=== PATIENT | female | born 1995 | race Caucasian/White ===

== ENCOUNTER 2018-12-08 07:45 | Emergency (ER) | payer BC, MEDICAID ==
[~2018-12-08] VITALS: Wt 54.5 kg
[2018-12-08] MEDS ORDERED: KETOROLAC 60 MG INJ IM STA (09:27)
[2018-12-08] MEDS ORDERED: MICO100S4 VG (09:41)
[2018-12-08] MEDS ORDERED: NITR-58 PO (09:41)
[2018-12-08] MEDS ORDERED: FLUC150T PO (09:41)
[2018-12-08] MEDS ORDERED: NAPR-985 PO (09:41)
--- NOTE | 2018-12-08 09:51 | ERD ---
ER Documentation Chief Complaint Chief Complaint lower abd pain w nausea HPI 22-year-old female presenting with lower abdominal pain for the last 2 months. Patient states she has vaginal discharge. She has an IUD placed and she states she has some pelvic pain to the left lower pelvic region. She has not had intercourse for the last 7 months. States that she has not taken any medications for symptoms. Denies dysuria. No medical problems. Allergy to Bactrim. Surgical history denies. Social history denies. LNMP 2 months ago. History of irregular periods. ROS All systems reviewed and are negative except as per history of present illness. Medications Home Meds Active Scripts Naproxen* (Naprosyn*) 500 Mg Tablet, 500 MG PO BID PRN for PAIN AND/OR INFLAMMATION, #30 TAB Prov:LAURA DE LEON PA-C 12/08/18 Fluconazole* (Diflucan*) 150 Mg Tablet, 150 MG PO ONCE, #1 TAB Prov:LAURA DE LEON PA-C 12/08/18 Miconazole Nitrate (Miconazole 7) 100 Mg Supp.vag, 100 MG VG QHS, #7 SUPP.VAG Prov:LAURA DE LEON PA-C 12/08/18 Nitrofurantoin Monohyd Macrocr* (Macrobid*) 100 Mg Capsr, 100 MG PO BID for 14 Days, CAP Prov:LAURA DE LEON PA-C 12/08/18 Reported Medications [None] No Conflict Check 04/27/10 Allergies Allergies: Coded Allergies: Sulfamethoxazole (Verified Allergy, Mild, RASH, 04/29/09) Trimethoprim (Verified Allergy, Mild, RASH, 04/29/09) PMhx/Soc History of Surgery: No Anesthesia Reaction: No Hx Neurological Disorder: No Hx Respiratory Disorders: No Hx Cardiac Disorders: No Hx Psychiatric Problems: No Hx Miscellaneous Medical Probl: No Hx Alcohol Use: No Hx Substance Use: No Hx Tobacco Use: No Smoking Status: Never smoker FmHx Family History: No diabetes, No coronary disease, No other Physical Exam Vitals Vital Signs Date Temp Pulse Resp B/P (MAP) Pulse Ox O2 O2 Flow FiO2 Time Delivery Rate 12/08/18 97.8 88 20 114/66 99 07:53 (82) Physical Exam GENERAL: The patient is well-appearing, well-nourished, in no acute distress HEENT: Atraumatic. Conjunctivae are pink. Pupils equal, round, and reactive to light. There is no scleral icterus. Tympanic membranes clear bilaterally. Oropharynx clear. CHEST: Clear to auscultation bilaterally. There are no rales, wheezes or rhonchi. HEART: Regular rate and rhythm. No murmurs, clicks, rubs or gallops. ABDOMEN:Soft, nontender and nondistended. Good bowel sounds. No rebound or guarding. No gross peritonitis. No gross organomegaly or masses. GENITAL: Not as to the like discharge noted within the vaginal region. No PID. Result Diagram: 12/08/18 0818 12/08/18 0818 Results 24 hrs Laboratory Tests Test 12/08/18 08:18 12/08/18 08:21 White Blood Count 6.1 10^3/ul Red Blood Count 4.57 10^6/ul Hemoglobin 12.1 g/dl Hematocrit 39.0 % Mean Corpuscular Volume 85.3 fl Mean Corpuscular Hemoglobin 26.5 pg Mean Corpuscular Hemoglobin Concent 31.0 g/dl Red Cell Distribution Width 16.8 % Platelet Count 178 10^3/UL Mean Platelet Volume 12.0 fl Immature Granulocytes % 0.200 % Neutrophils % 47.7 % Lymphocytes % 41.7 % Monocytes % 7.6 % Eosinophils % 2.3 % Basophils % 0.5 % Nucleated Red Blood Cells % 0.0 /100WBC Immature Granulocytes # 0.010 10^3/ul Neutrophils # 2.9 10^3/ul Lymphocytes # 2.5 10^3/ul Monocytes # 0.5 10^3/ul Eosinophils # 0.1 10^3/ul Basophils # 0.0 10^3/ul Nucleated Red Blood Cells # 0.0 10^3/ul Urine Color YELLOW Urine Clarity CLOUDY Urine pH 5.0 Urine Specific [place] 1.030 Urine Ketones NEGATIVE mg/dL Urine Nitrite NEGATIVE mg/dL Urine Bilirubin NEGATIVE mg/dL Urine Urobilinogen NEGATIVE mg/dL Urine Leukocyte Esterase 2+ Kina/ul Urine Microscopic RBC 14 /HPF Urine Microscopic WBC 16 /HPF Urine Squamous Epithelial Cells FEW /HPF Urine Calcium Oxalate Crystals MANY /HPF Urine Amorphous Crystals FEW /HPF Urine Bacteria FEW /HPF Urine Mucus MODERATE /HPF Urine Hemoglobin NEGATIVE mg/dL Urine Glucose NEGATIVE mg/dL Urine Total Protein NEGATIVE mg/dl Sodium Level 142 mmol/L Potassium Level 3.7 mmol/L Chloride Level 107 mmol/L Carbon Dioxide Level 25 mmol/L Anion Gap 10 Blood Urea Nitrogen 14 mg/dl Creatinine 0.76 mg/dl Est Glomerular Filtrat Rate mL/min > 60 mL/min Glucose Level 53 mg/dl Calcium Level 9.6 mg/dl Total Bilirubin 0.4 mg/dl Direct Bilirubin 0.00 mg/dl Indirect Bilirubin 0.4 mg/dl Aspartate Amino Transf (AST/SGOT) 24 IU/L Alanine Aminotransferase (ALT/SGPT) 19 IU/L Alkaline Phosphatase 50 IU/L Total Protein 8.0 g/dl Albumin 4.4 g/dl Globulin 3.60 g/dl Albumin/Globulin Ratio 1.22 Lipase 80 U/L POC Beta HCG, Qualitative NEGATIVE Current Medications Medications Dose Sig/Faisal Start Time Status Last (Trade) Ordered Route PRN Stop Time Admin Dose Reason Admin Ketorolac 60 mg ONCE STAT 12/08/18 DC 12/08/18 Tromethamine IM 09:27 09:40 (Toradol) 12/08/18 09:28 500 mg ONCE ONCE 12/08/18 DC Ciprofloxacin PO 10:00 (Cipro) 12/08/18 10:00 Procedures/MDM DIAGNOSTIC IMAGING REPORT Patient: SYD LEE : 1995 Age: 22 Sex: F MR #: [id number] DOS: 12/08/18 0805 Ordering MD: LUIS DE LEON PA-C Location: [facility] Room/Bed: PROCEDURE: US Pelvis. CLINICAL INDICATION: pelvic pain TECHNIQUE: Multiple sonographic images of the pelvis were obtained utilizing transabdominal and endovaginal technique. The images were reviewed on a PACS workstation. COMPARISON: None. FINDINGS: The uterus is normal in size with a normal appearance of the myometrium. The uterus measures 6.5 x 2.9 x 4.4 cm. The endometrial stripe is homogeneous in appearance and has the thickness of 11 mm. There is a 9 x 4 mm solid echogenic mass within the endometrium. There is an IUD within the lower uterine segment. Normal Doppler flow is identified in both ovaries. The right ovary measures 3.6 x 2.1 x 2.2 cm. The left ovary measures 4.6 x 2.7 x 3.4 cm. There is a 2.4 cm hemorrhagic cyst in the left ovary. No free fluid is present within the pelvis. RPTAT: AA IMPRESSION: 9 mm solid echogenic mass in the endometrium, suspicious for an endometrial polyp. Enlarged left ovary with a 2.4 cm hemorrhagic cyst. IUD within the lower uterine segment. Repositioning is recommended. EKG: Rate/Rhythm: Normal Sinus Rhythm QRS, ST, T-waves: No changes consistent w/ acute ischemia Impression: No evidence of ischemia or arrhythmia ER Course: Toradol given in ED MDM: 22-year-old female presenting with pelvic pain. Patient has some mild tenderness to palpation the left pelvic region likely caused by ovarian cyst seen on ultrasound. I have low suspicion for torsion. I have low suspicion for tubo-ovarian abscess. Patient has findings of urinary tract infection on urinalysis no treat with antibiotics. Patient's pelvic exam is concerning for yeast vaginitis. Patient is told symptoms change or worsen to return immediately to the ER. Patient is told symptoms change or worsen to return immediately to the ER and recommended to follow-up with [facility]. All questions answered at discharge. Patient is discharged with supportive medications Departure Diagnosis: Primary Impression: Yeast infection Additional Impression: Ovarian cyst Condition: Stable Patient Instructions: Understanding Urinary Tract Infections (UTIs), Ovarian Cyst Referrals: [facility] [place] [id number] [facility] [address] [place], [place] [phone] OFFICE FAX KIERAN ZAMORA [address] [place], [place] [phone] [facility] [address] [place], [place] [phone] [facility] [address] [facility] [address] [address] [address] [address] [place], [place] [phone] [facility] [address] [place], [place] [address] [address] [facility] [place] [id number] - CARRIE OROPEZA [address], [facility] [address] [address] GARDINER, RAGHU [address] [facility]. [address], [facility] [address] [address] [facility] [address] [place], [place] [phone] Additional Instructions: FOLLOW UP WITH YOUR PRIMARY CARE PHYSICIAN TOMORROW.Return to this facility if you are not improving as expected. LAURA DE LEON PA-C Dec 08, 2018 09:51
[2018-12-08 10:00] VITALS: BP 118/70; PULSE 79; RESP 20
[2018-12-08] MEDS ORDERED: CIPROFLOXACIN 500 MG TAB PO ONE (10:00)
== END 2018-12-08 10:02 | disposition home or self-care (01) ==
LOC: FTE 07:45
DX: B37.3 Candidiasis of vulva and vagina (principal); N83.202 Unspecified ovarian cyst, left side
CPT/HCPCS: 36415; 76830; 76856; 80053; 81001; 81025; 83690; 85025; 93005; 96372; J1885; Z7502